=== PATIENT | male | born 1980 | race Caucasian/White ===

== ENCOUNTER 2017-11-01 17:24 | Inpatient (IN) | payer OTHER ==
[~2017-11-01] VITALS: Ht 177.8 cm; Wt 73.5 kg
[~2017-11-01 17:24] MED LIST: ALLO300T PO
[2017-11-01] MEDS ORDERED: AMPICILLIN/SULBACTAM 3 GM in SODIUM CHLORIDE 0.9% 100 ML IV ONE (18:30)
[2017-11-01] MEDS ORDERED: VANCOMYCIN PER PHARMACY MC PRN ×2 (18:30→20:00)
[2017-11-01] MEDS ORDERED: SODIUM CHLORIDE FLUSH 10ML SYR IVF ONE (18:30)
[2017-11-01 18:38] LABS: BASOPHILS # (AUTO) 0.04 x10^3/uL (0-0.1); BASOPHILS % (AUTO) 0 % (0-1); EOSINOPHILS # (AUTO) 0.07 x10^3/uL (0-0.4); EOSINOPHILS % (AUTO) 1 % (1-7); LYMPHOCYTES # (AUTO) 2.69 x10^3/uL (1-3.4); LYMPHOCYTES % (AUTO) 22 % (22-44); MD NO; MEAN CORPUSCULAR HEMOGLOBIN 33.4 pg (27.5-34.5); MEAN CORPUSCULAR HGB CONC 34.6 g/dL (33.2-36.2); MEAN CORPUSCULAR VOLUME 96.5 fL (81-97); MEAN PLATELET VOLUME 7.2 fL (7.4-10.4); MONOCYTES # (AUTO) 0.56 x10^3/uL (0.2-0.8); MONOCYTES % (AUTO) 5 % (2-9); NEUTROPHILS # (AUTO) 8.83 x10^3/uL (1.8-6.8); NEUTROPHILS % (AUTO) 72 % (42-75); PLATELET COUNT 332 x10^3/uL (130-400); RED BLOOD COUNT 4.86 x10^6/uL (4.38-5.82); RED CELL DISTRIBUTION WIDTH 12.3 % (9.4-14.8)
[2017-11-01 18:50] LABS: ALBUMIN 3.7 g/dL (3.4-5.0); ANION GAP 11 mmol/L (5-15); CALCIUM 9.3 mg/dL (8.5-10.1); CHLORIDE 103 mmol/L (98-107); CREATININE 0.88 mg/dL (0.7-1.3)
[2017-11-01] MEDS ORDERED: VANCOMYCIN 1,900 MG in SODIUM CHLORIDE 0.9% 250 ML IV ONE (19:00)
[2017-11-01] MEDS ORDERED: KETOROLAC 30 MG/1 ML ONE (19:27)
[2017-11-01] MEDS ORDERED: MORPHINE SULFATE 4 MG/ML, 1ML ONE (19:27)
[2017-11-01] MEDS ORDERED: KETOROLAC 30 MG/1 ML IVPush ONE (19:30)
[2017-11-01] MEDS ORDERED: morphine SULFATE 10 MG/ML, 1ML IVPush ONE (19:30)
[2017-11-01] MEDS ORDERED: MORPHINE SULFATE 4 MG/ML, 1ML IVPush PRN (20:00)
[2017-11-01] MEDS: VANCOMYCIN 1,900 MG in SODIUM CHLORIDE 0.9% 250 ML IV SCH (21:00)
[2017-11-01] MEDS: SODIUM CHLORIDE 0.9% 1,000 ML IV SCH (21:07)
[2017-11-01] MEDS ORDERED: PHARMACOKINETIC CONSULTATION MC ONE (21:30)
[2017-11-01] MEDS ORDERED: PHARMACOKINETIC MONITORING MC PRN (21:30)
[2017-11-01 22:00] VITALS: BP 132/88
[2017-11-02 01:39] VITALS: BP 95/70
[2017-11-02] MEDS: AMPICILLIN/SULBACTAM 1,500 MG in SODIUM CHLORIDE 0.9% 50 ML IV SCH ×4 (01:44→20:57)
[2017-11-02] MEDS: OXYcodone IR 5MG TABLET PO PRN ×5 (01:51→22:34)
[2017-11-02 07:47] VITALS: BP 116/80
[2017-11-02] MEDS: VANCOMYCIN 1,900 MG in SODIUM CHLORIDE 0.9% 250 ML IV SCH ×3 (09:54→23:16)
[2017-11-02] MEDS: POLYETHYLENE GLYCOL 17 GM PACKET PO SCH (09:55)
[2017-11-02 13:31] VITALS: BP 121/82
[2017-11-02] MEDS: SODIUM CHLORIDE 0.9% 1,000 ML IV SCH (15:08)
[2017-11-02 20:25] VITALS: BP 134/82
[2017-11-03 01:24] VITALS: BP 112/75
[2017-11-03] MEDS: AMPICILLIN/SULBACTAM 1,500 MG in SODIUM CHLORIDE 0.9% 50 ML IV SCH ×4 (03:26→21:01)
[2017-11-03] MEDS: OXYcodone IR 5MG TABLET PO PRN ×5 (03:30→21:02)
[2017-11-03 07:04] VITALS: BP 118/77
[2017-11-03] MEDS: SODIUM CHLORIDE 0.9% 1,000 ML IV SCH (07:16)
[2017-11-03] MEDS: POLYETHYLENE GLYCOL 17 GM PACKET PO SCH (07:24)
[2017-11-03] MEDS: VANCOMYCIN 1,900 MG in SODIUM CHLORIDE 0.9% 250 ML IV SCH ×2 (10:13→22:08)
[2017-11-03 15:21] VITALS: BP 116/81
[2017-11-03] MEDS ORDERED: SENNA/DOCUSATE TABLET PO PRN (16:00)
[2017-11-03] MEDS: ACETAMINOPHEN 325 MG TABLET PO PRN ×2 (16:49→21:02)
[2017-11-03 19:27] VITALS: BP 116/79
[2017-11-04 02:29] VITALS: BP 121/73
[2017-11-04] MEDS: AMPICILLIN/SULBACTAM 1,500 MG in SODIUM CHLORIDE 0.9% 50 ML IV SCH ×2 (03:29→08:47)
[2017-11-04] MEDS: OXYcodone IR 5MG TABLET PO PRN ×5 (03:29→21:56)
[2017-11-04] MEDS: ACETAMINOPHEN 325 MG TABLET PO PRN ×4 (03:29→21:56)
[2017-11-04 05:33] LABS: BASOPHILS # (AUTO) 0.04 x10^3/uL (0-0.1); BASOPHILS % (AUTO) 0 % (0-1); EOSINOPHILS # (AUTO) 0.13 x10^3/uL (0-0.4); EOSINOPHILS % (AUTO) 1 % (1-7); HCT (SEDRATE) 42.8 % (39.2-51.8); LYMPHOCYTES # (AUTO) 2.28 x10^3/uL (1-3.4); LYMPHOCYTES % (AUTO) 20 % (22-44); MD NO; MEAN CORPUSCULAR HEMOGLOBIN 32.9 pg (27.5-34.5); MEAN CORPUSCULAR HGB CONC 33.9 g/dL (33.2-36.2); MONOCYTES # (AUTO) 0.84 x10^3/uL (0.2-0.8); MONOCYTES % (AUTO) 7 % (2-9); NEUTROPHILS # (AUTO) 8.05 x10^3/uL (1.8-6.8); NEUTROPHILS % (AUTO) 71 % (42-75); PLATELET COUNT 286 x10^3/uL (130-400); RED BLOOD COUNT 4.41 x10^6/uL (4.38-5.82); RED CELL DISTRIBUTION WIDTH 11.9 % (9.4-14.8)
[2017-11-04 05:38] LABS: CREATININE 0.99 mg/dL (0.7-1.3)
[2017-11-04 06:00] LABS: SEDIMENTATION RATE 37 mm/hr (0-10)
[2017-11-04 08:02] VITALS: BP 110/72
[2017-11-04] MEDS: POLYETHYLENE GLYCOL 17 GM PACKET PO SCH (09:00)
[2017-11-04] MEDS: VANCOMYCIN 1,900 MG in SODIUM CHLORIDE 0.9% 250 ML IV SCH ×2 (10:00→21:56)
[2017-11-04 13:51] VITALS: BP 116/76
[2017-11-04] MEDS: AMPICILLIN/SULBACTAM 1,500 MG in SODIUM CHLORIDE 0.9% 100 ML IV SCH ×2 (15:00→20:50)
[2017-11-04 19:06] VITALS: BP 137/80
[2017-11-05 01:00] VITALS: BP 110/69
[2017-11-05] MEDS: AMPICILLIN/SULBACTAM 1,500 MG in SODIUM CHLORIDE 0.9% 100 ML IV SCH ×4 (03:03→20:40)
[2017-11-05] MEDS: ACETAMINOPHEN 325 MG TABLET PO PRN (03:05)
[2017-11-05] MEDS: OXYcodone IR 5MG TABLET PO PRN ×3 (03:05→16:37)
[2017-11-05 05:18] LABS: ALANINE AMINOTRANSFERASE 17 U/L (12-78); ALBUMIN 3.1 g/dL (3.4-5.0); ANION GAP 6 mmol/L (5-15); CHLORIDE 105 mmol/L (98-107)
[2017-11-05 05:20] LABS: ALKALINE PHOSPHATASE 64 U/L (45-117); BILIRUBIN,TOTAL 0.4 mg/dL (0.2-1.0); TOTAL PROTEIN 7.5 g/dL (6.4-8.2)
[2017-11-05 05:24] LABS: BASOPHILS # (AUTO) 0.03 x10^3/uL (0-0.1); BASOPHILS % (AUTO) 0 % (0-1); EOSINOPHILS # (AUTO) 0.22 x10^3/uL (0-0.4); EOSINOPHILS % (AUTO) 2 % (1-7); LYMPHOCYTES # (AUTO) 2.11 x10^3/uL (1-3.4); LYMPHOCYTES % (AUTO) 15 % (22-44); MD NO; MEAN CORPUSCULAR HEMOGLOBIN 33.2 pg (27.5-34.5); MEAN CORPUSCULAR HGB CONC 34.2 g/dL (33.2-36.2); MEAN CORPUSCULAR VOLUME 96.9 fL (81-97); MEAN PLATELET VOLUME 7.2 fL (7.4-10.4); MONOCYTES # (AUTO) 0.96 x10^3/uL (0.2-0.8); MONOCYTES % (AUTO) 7 % (2-9); NEUTROPHILS # (AUTO) 10.55 x10^3/uL (1.8-6.8); NEUTROPHILS % (AUTO) 76 % (42-75); PLATELET COUNT 291 x10^3/uL (130-400); RED BLOOD COUNT 4.37 x10^6/uL (4.38-5.82)
[2017-11-05] MEDS ORDERED: CEFAZOLIN 1,000 MG ONE ×2 (07:06)
[2017-11-05] MEDS ORDERED: PROPOFOL 10 MG/ML, 20ML ONE (07:06)
[2017-11-05] MEDS ORDERED: FENTANYL PF 100 MCG/2ML ONE (07:08)
[2017-11-05] MEDS ORDERED: MIDAZOLAM 1 MG/ML, 2ML ONE (07:09)
[2017-11-05] MEDS ORDERED: ONDANSETRON 2MG/ML, 2ML ONE (07:13)
[2017-11-05] MEDS ORDERED: METOCLOPRAMIDE 5 MG/ML, 2ML ONE (07:13)
[2017-11-05] MEDS ORDERED: LABETALOL 5MG/ML, 20ML IV PRN (07:30)
[2017-11-05] MEDS ORDERED: MEPERIDINE/PF 25MG/0.5ML IVPush PRN (07:30)
[2017-11-05] MEDS ORDERED: MORPHINE SULFATE 4 MG/ML, 1ML IV PRN (07:30)
[2017-11-05] MEDS ORDERED: PROMETHAZINE 25 MG/ML, 1ML IV PRN (07:30)
[2017-11-05] MEDS ORDERED: ALBUTEROL SULFATE 2.5 MG/3 ML NPPB PRN (07:30)
[2017-11-05] MEDS ORDERED: OXYcodone 5 MG/5 ML ORAL.SOL UDC PO PRN (07:30)
[2017-11-05] MEDS ORDERED: hydrALAzine 20 MG/ML, 1ML IV PRN (07:30)
[2017-11-05] MEDS ORDERED: ONDANSETRON 2MG/ML, 2ML IVPush PRN (07:30)
[2017-11-05] MEDS ORDERED: METOPROLOL 1 MG/ML, 5ML IV PRN (07:30)
[2017-11-05] MEDS ORDERED: ACETAMINOPHEN 325 MG TABLET PO PRN (07:30)
[2017-11-05] MEDS ORDERED: EPHEDRINE 50 MG/ML, 1ML IVPush PRN (07:30)
[2017-11-05] MEDS ORDERED: FENTANYL PF 100 MCG/2ML IV PRN (07:30)
[2017-11-05] MEDS ORDERED: OXYcodone 5 MG/5 ML ORAL.SOL UDC ONE (07:58)
[2017-11-05 08:36] VITALS: BP 134/76
[2017-11-05] MEDS: POLYETHYLENE GLYCOL 17 GM PACKET PO SCH (09:00)
[2017-11-05] MEDS: VANCOMYCIN 1,900 MG in SODIUM CHLORIDE 0.9% 250 ML IV SCH ×2 (11:43→23:58)
[2017-11-05 15:39] VITALS: BP 128/80
[2017-11-05] MEDS ORDERED: COLCHICINE 0.6 MG TABLET PO ONE (17:00)
[2017-11-05] MEDS: COLCHICINE 0.6 MG TABLET PO SCH (18:40)
[2017-11-05] MEDS: INDOMETHACIN 50 MG CAPSULE PO SCH ×2 (18:41→20:40)
[2017-11-05 19:37] VITALS: BP 120/81
[2017-11-06 00:37] VITALS: BP 111/75
[2017-11-06] MEDS: AMPICILLIN/SULBACTAM 1,500 MG in SODIUM CHLORIDE 0.9% 100 ML IV SCH ×3 (02:54→15:08)
[2017-11-06] MEDS: OXYcodone IR 5MG TABLET PO PRN ×4 (02:57→20:56)
[2017-11-06] MEDS: INDOMETHACIN 50 MG CAPSULE PO SCH ×3 (08:49→20:57)
[2017-11-06 08:50] VITALS: BP 119/80
[2017-11-06] MEDS: POLYETHYLENE GLYCOL 17 GM PACKET PO SCH (08:59)
[2017-11-06] MEDS: VANCOMYCIN 1,900 MG in SODIUM CHLORIDE 0.9% 250 ML IV SCH ×2 (11:55→23:33)
[2017-11-06 15:10] VITALS: BP 106/68
[2017-11-06] MEDS: COLCHICINE 0.6 MG TABLET PO SCH (17:48)
[2017-11-06] MEDS ORDERED: COLCHICINE 0.6 MG TABLET PO SCH (18:00)
[2017-11-06 19:10] VITALS: BP 122/68
[2017-11-06] MEDS ORDERED: AMPICILLIN/SULBACTAM 1,500 MG in SODIUM CHLORIDE 0.9% 50 ML IV SCH (21:00)
[2017-11-07] MEDS: AMPICILLIN/SULBACTAM 1,500 MG in SODIUM CHLORIDE 0.9% 100 ML IV SCH ×2 (02:52→08:23)
[2017-11-07 03:17] VITALS: BP 105/66
[2017-11-07] MEDS: OXYcodone IR 5MG TABLET PO PRN ×4 (05:14→20:17)
[2017-11-07 05:33] LABS: BASOPHILS # (AUTO) 0.04 x10^3/uL (0-0.1); BASOPHILS % (AUTO) 0 % (0-1); EOSINOPHILS # (AUTO) 0.24 x10^3/uL (0-0.4); EOSINOPHILS % (AUTO) 3 % (1-7); LYMPHOCYTES # (AUTO) 1.89 x10^3/uL (1-3.4); LYMPHOCYTES % (AUTO) 19 % (22-44); MD NO; MEAN CORPUSCULAR HEMOGLOBIN 32.9 pg (27.5-34.5); MEAN CORPUSCULAR HGB CONC 33.8 g/dL (33.2-36.2); MEAN CORPUSCULAR VOLUME 97.5 fL (81-97); MEAN PLATELET VOLUME 7.3 fL (7.4-10.4); MONOCYTES # (AUTO) 0.79 x10^3/uL (0.2-0.8); MONOCYTES % (AUTO) 8 % (2-9); NEUTROPHILS # (AUTO) 6.85 x10^3/uL (1.8-6.8); NEUTROPHILS % (AUTO) 70 % (42-75); PLATELET COUNT 296 x10^3/uL (130-400); RED BLOOD COUNT 4.31 x10^6/uL (4.38-5.82); RED CELL DISTRIBUTION WIDTH 11.9 % (9.4-14.8)
[2017-11-07 05:43] LABS: ALANINE AMINOTRANSFERASE 22 U/L (12-78); ALBUMIN 2.7 g/dL (3.4-5.0); ANION GAP 5 mmol/L (5-15); CALCIUM 8.1 mg/dL (8.5-10.1); CHLORIDE 109 mmol/L (98-107); CREATININE 0.89 mg/dL (0.7-1.3)
[2017-11-07 05:58] LABS: ALKALINE PHOSPHATASE 58 U/L (45-117); BILIRUBIN,TOTAL 0.4 mg/dL (0.2-1.0); TOTAL PROTEIN 6.5 g/dL (6.4-8.2)
[2017-11-07 06:29] VITALS: BP 115/81
[2017-11-07] MEDS: POLYETHYLENE GLYCOL 17 GM PACKET PO SCH (08:17)
[2017-11-07] MEDS: INDOMETHACIN 50 MG CAPSULE PO SCH ×3 (08:17→20:17)
[2017-11-07] MEDS ORDERED: OMEPRAZOLE 20 MG CAPSULE.DR ONE (09:38)
[2017-11-07] MEDS: OMEPRAZOLE 20 MG CAPSULE.DR PO SCH ×2 (09:40→16:01)
[2017-11-07] MEDS: SUCRALFATE 1 GM TABLET PO SCH ×3 (10:54→20:17)
[2017-11-07] MEDS ORDERED: DAPTOMYCIN 530 MG in SODIUM CHLORIDE 0.9% 100 ML IVPB SCH (12:00)
[2017-11-07] MEDS: DAPTOMYCIN IVPB SCH (12:40)
[2017-11-07] MEDS: SODIUM CHLORIDE 0.9% IVPB SCH (12:40)
[2017-11-07 12:54] VITALS: BP 119/78
[2017-11-07] MEDS: COLCHICINE 0.6 MG TABLET PO SCH (17:44)
[2017-11-07 18:52] VITALS: BP 125/73
[2017-11-07] MEDS: MAALOX/HYOSCYAMINE/LIDOCAINE 45 ML BTL PO PRN (20:16)
[2017-11-08 00:36] VITALS: BP 109/68
[2017-11-08] MEDS: MAALOX/HYOSCYAMINE/LIDOCAINE 45 ML BTL PO PRN (01:16)
[2017-11-08] MEDS: OXYcodone IR 5MG TABLET PO PRN ×2 (06:00→10:31)
[2017-11-08] MEDS: POLYETHYLENE GLYCOL 17 GM PACKET PO SCH (07:13)
[2017-11-08] MEDS: OMEPRAZOLE 20 MG CAPSULE.DR PO SCH (07:14)
[2017-11-08] MEDS: SUCRALFATE 1 GM TABLET PO SCH ×2 (07:14→12:03)
[2017-11-08] MEDS: INDOMETHACIN 50 MG CAPSULE PO SCH (07:14)
[2017-11-08 07:25] VITALS: BP 118/80
[2017-11-08] MEDS: DAPTOMYCIN IVPB SCH (12:03)
[2017-11-08] MEDS: SODIUM CHLORIDE 0.9% IVPB SCH (12:03)
[2017-11-08 12:22] VITALS: BP 128/82
[2017-11-08] MEDS ORDERED: OMEP-110 PO (13:37)
[2017-11-08] MEDS ORDERED: DAPT500V6 IV (13:37)
[2017-11-08] MEDS ORDERED: INDO50CA PO (13:37)
[2017-11-08] MEDS ORDERED: COLC0.6T37 PO (13:37)
== END 2017-11-08 15:28 | disposition home or self-care (01) | DRG 872 ==
LOC: ED 19:24 → EDIP 19:36 → 3NE 20:45 → DCLOUNGE 11-08 15:20
PROVIDERS: ADMIT Hospitalist; ATTEND Internal Medicine
PROC: 0HBFXZZ Excision of Right Hand Skin, External Approach (ICD-10-PCS; 2017-11-05)
PROC: B5181ZA Fluoroscopy of Superior Vena Cava using Low Osmolar Contrast, Guidance (ICD-10-PCS; principal; 2017-11-07)
PROC: 02HV33Z Insertion of Infusion Device into Superior Vena Cava, Percutaneous Approach (ICD-10-PCS; 2017-11-07)
PROC: B548ZZA Ultrasonography of Superior Vena Cava, Guidance (ICD-10-PCS; 2017-11-07)
DX: A41.9 Sepsis, unspecified organism (principal); M86.10 Other acute osteomyelitis, unspecified site; L02.512 Cutaneous abscess of left hand; L03.114 Cellulitis of left upper limb; L03.221 Cellulitis of neck; F17.210 Nicotine dependence, cigarettes, uncomplicated; K21.9 Gastro-esophageal reflux disease without esophagitis; M10.9 Gout, unspecified
CPT/HCPCS: 36415; 36569; 76937; 77001; 80048; 80053; 80202; 82040; 82550; 82565; 83605; 84520; 85025; 85651; 86140; 86200; 86430; 87040; 87070; 87075; 87205; 89060; 96374; 96375; J0295; J0690; J0878; J1885; J2250; J2405; J2704; J3010; J3370; C1751; J2270; J2765; J7030; J7050